=== PATIENT | female | born 1990 | race Caucasian/White ===

== ENCOUNTER 2019-12-23 21:00 | Inpatient (IN) | payer MEDICAID, SELFPAY ==
[2019-12-23 21:06] VITALS: BP 121/74; PULSE 101; RESP 16; TEMP 36.7; O2SAT 100; BMI 20.8
--- NOTE | 2019-12-23 23:06 | ED_ITS ---
Documented by User: KARI Wilcox 12/24/19 04:18 HPI - Female Genitourinary General: Chief complaint: Vaginal Bleeding Stated complaint: bleeding post miscarriage Time Seen by Provider: 12/23/19 22:54 History of Present Illness: HPI Narrative: Patient is a 29-year-old female comes to the ED with vaginal bleeding. Patient says that she had a miscarriage back on December 01. Patient says she was about 7 weeks when she had the miscarriage and states that she had approximately 5 to 7 days of heavy bleeding but then it stopped. She says she had no bleeding or pelvic pain then afterwards. She says on December 18 she started having heavy bleeding again with big clots coming out. She bleeds through 5-6 heavy pads a day for the last 4 days. She also describes having pelvic cramping as well. Patient says she did not see an OB or PCP after miscarriage and no ultrasound or anything was performed to make sure patient had no remaining tissue. Denies any fever, dysuria, hematuria, diarrhea, constipation or blood in stool. Patient took Tylenol for pain right before arriving to the ED. Associated symptoms: Deny abdominal pain, headache(s) or nausea Review of Systems Const: Denies: fever(s), chills or fatigue Eyes: Denies: change in vision or eye discomfort ENMT: Denies: throat pain, odynophagia, nasal discharge or nasal congestion Card: Denies: chest pain, palpitations, edema, swelling of feet/ankles, dyspnea on exertion or orthopnea Resp: Denies: dyspnea, productive cough or non-productive cough GI: Denies: abdominal pain, nausea, vomiting, diarrhea, constipation or hematochezia : Reports: vaginal bleeding and pelvic pain; Denies: flank pain, dysuria or hematuria Musc: Denies: neck pain, back pain or extremity swelling Skin/Breast: Denies: rash or new lesions Neuro: Denies: headache(s), numbness in extremities or weakness in extremities [facility] ED PFSH: Social History Smoking and tobacco status: current every day smoker Physical Exam Const: COMMON NORMALS: no acute distress, patient oriented x3 and alert GENERAL APPEARANCE: cooperative and comfortable HENMT: COMMON NORMALS: normocephalic HEAD & SCALP: normocephalic MOUTH: Normal oral and palatal mucosa present THROAT: posterior oropharynx normal and uvula midline Eye: COMMON NORMALS: Equal, round and reactive pupils present PUPIL: Yes Equal, round and reactive pupils present Neck/C-Spine: COMMON NORMALS: supple GENERAL: Yes normal visual inspection Resp: COMMON NORMALS: normal respiratory effort, No retractions, No use of accessory muscles and clear to auscultation bilaterally AUSCULTATION: clear to auscultation bilaterally Cardio: COMMON NORMALS: regular rate, regular rhythm, S1 normal heart sound present, S2 normal heart sound present, No gallops present (Cardio), No clicks present (Cardio), No murmurs present (Cardio) and Peripheral pulses 2+ throughout RATE: regular rate RHYTHM: regular rhythm HEART SOUNDS: S1 normal heart sound present and S2 normal heart sound present PERIPHERAL PULSES: Peripheral pulses 2+ throughout GI: COMMON NORMALS: Normal to inspection, nondistended, normoactive bowel sounds present, Soft to palpation and no masses PALPATION: Yes Soft to palpation and Yes Tenderness to palpation present (GI) Details: other (Lower left and right pelvic tenderness.) : COMMON NORMALS: Yes no CVA tenderness BLADDER/KIDNEY EXAM: Yes no CVA tenderness Back/Pelvis: COMMON NORMALS: no CVA tenderness Extremity: COMMON NORMALS: normal to inspection and no pedal edema Neuro: COMMON NORMALS: patient oriented x3 and moves all extremities SENSORIUM/ORIENTATION: Yes alert Skin: COMMON NORMALS: no rashes or lesions noted GENERAL SKIN EXAM: no rash es or lesions noted and dry skin Course Consultations: Consultation #1: I spoke with Dr. Bolanos of the OB doctor customer solutions coordinator and discussed patient's case with them. He recommended that we give patient Methergine and Tranexamic Acid to try and stop/slow down the bleeding. After giving medication we can reevaluate contact him. If bleeding does not slow or stop patient be admitted and D&C will be performed tomorrow Time: 01:13 Vital Signs: Vital signs: Vital Signs Temperature 98.1 F 12/23/19 21:06 Pulse Rate 85 12/24/19 04:00 Respiratory Rate 14 12/24/19 04:00 Blood Pressure 99/62 12/24/19 04:00 Pulse Oximetry 97 12/24/19 04:00 MDM - Female MDM Narrative: Medical decision making narrative: Patient is a 29-year-old female who comes to the ED with vaginal bleeding and pelvic pain. Patient was 7 weeks and had a miscarriage a little over 2 weeks ago. She started having heavy bleeding and pelvic pain again 4 days ago. White blood cells 12.1, hemoglobin 14.1 and hematocrit 42.2, hCG quant 0.50 and UA was unremarkable. Ultrasound of the pelvic with transvaginal showed No visible intrauterine . Mixed echogenicity material in the endometrial canal likely represents blood products. Retained products of conception cannot be excluded. I then contacted Dr. Bolanos the on-call OB doctor and told him about patient's case and ultrasound findings. He recommended giving Methergine and tranexamic acid to try and slow or stop the bleeding. If bleeding does not stop or slow patient will be admitted and D&C will be performed tomorrow. I signed outpatient case to Dr. Soria and he will be managing care and contacting Dr. Bolanos for possible admission. Patient was informed about plan of care and possible admission. She understood and agrees with plan. Lab Data: Attestation: I reviewed the patient's lab results. Labs: Lab Results 12/23/19 12/23/19 12/23/19 Range/Units 23:26 23:26 23:26 WBC 12.1 H (4.0-10.0) 10^3/ uL RBC 4.35 (4.1-5.3) 10^6/u L Hgb 14.1 (11.5-15.3) g/dL Hct 42.2 (37.0-47.0) % MCV 97.0 (81-99) fL MCH 32.4 (28.0-34.0) pg MCHC 33.4 (30.0-36.0) g/dL RDW 11.7 L (12.1-15.1) % Plt Count 249 (130-400) 10^3/c mm MPV 10.2 (7.4-10.4) fL Neut % (Auto) 66.9 % Lymph % (Auto) 24.0 % [place] % (Auto) 6.8 % Eos % (Auto) 1.7 % Baso % (Auto) 0.4 % Neut # (Auto) 8.1 H (1.8-7.7) 10^3/u L Lymph # (Auto) 2.9 (0.8-4.8) 10^3/u L [place]ley # (Auto) 0.8 (0.2-0.9) 10^3/u L Eos # (Auto) 0.2 (0.0-0.8) 10^3/u L Baso # (Auto) 0.1 (0.0-0.1) 10^3/u L Nucleated RBC % (a uto) 0 % Nucleated RBCs # 0.0 /100WBC PT 12.70 (10.5-13.3) SECO NDS INR 0.93 (0.8-1.2) APTT 32.8 (23.9-36.7) SECO NDS Sodium 139 (136-145) mmol/L Potassium 3.9 (3.5-5.1) mmol/L Chloride 101 (98-107) mmol/L Carbon Dioxide 26 (22-29) mmol/L Anion Gap 15.9 (5-19) BUN 12 (6-20) mg/dL Creatinine 0.7 (0.5-0.9) mg/dL GFR Calculation 99.6 (90-130) mL/min Glucose 79 (65-115) mg/dL Calculated Osmolal ity 283 L (285-295) mOsm/k g Calcium 9.4 (8.5-10.5) mg/dL Total Bilirubin 0.2 (0.15-1.2) mg/dL AST 19 (0-32) U/L ALT 15 (0-33) U/L Alkaline Phosphata se 56 (35-105) IU/L Total Protein 7.1 (6.6-8.7) g/dL Albumin 4.4 (3.5-5.2) g/dL Globulin 2.7 (1.3-4.6) g/dL Ser , Stacy i-Qnt 0.50 mIU/mL Urine Color (Yellow) Urine Appearance (CLEAR) Urine pH (5-7) Ur Specific Gravit y (1.005-1.030) Urine Protein (Negative) Urine Glucose (UA) (Normal) Urine Ketones (Negative) Urine Blood (Negative) Urine Nitrate (Negative) Urine Bilirubin (NEGATIVE) Urine Urobilinogen (Negative) mg/dL Ur Leukocyte Tracy ase (Negative) Urine RBC (0-2) /hpf Urine WBC (0-5) /hpf Ur Squamous Epith Cells (0-5) Amorphous Sediment Urine Bacteria (NONE) Urine Mucus 12/23/19 Range/Units 23:46 WBC (4.0-10.0) 10^3/ uL RBC (4.1-5.3) 10^6/u L Hgb (11.5-15.3) g/dL Hct (37.0-47.0) % MCV (81-99) fL MCH (28.0-34.0) pg MCHC (30.0-36.0) g/dL RDW (12.1-15.1) % Plt Count (130-400) 10^3/c mm MPV (7.4-10.4) fL Neut % (Auto) % Lymph % (Auto) % [place] % (Auto) % Eos % (Auto) % Baso % (Auto) % Neut # (Auto) (1.8-7.7) 10^3/u L Lymph # (Auto) (0.8-4.8) 10^3/u L [place] # (Auto) (0.2-0.9) 10^3/u L Eos # (Auto) (0.0-0.8) 10^3/u L Baso # (Auto) (0.0-0.1) 10^3/u L Nucleated RBC % (a uto) % Nucleated RBCs # /100WBC PT (10.5-13.3) SECO NDS INR (0.8-1.2) APTT (23.9-36.7) SECO NDS Sodium (136-145) mmol/L Potassium (3.5-5.1) mmol/L Chloride (98-107) mmol/L Carbon Dioxide (22-29) mmol/L Anion Gap (5-19) BUN (6-20) mg/dL Creatinine (0.5-0.9) mg/dL GFR Calculation (90-130) mL/min Glucose (65-115) mg/dL Calculated Osmolal ity (285-295) mOsm/k g Calcium (8.5-10.5) mg/dL Total Bilirubin (0.15-1.2) mg/dL AST (0-32) U/L ALT (0-33) U/L Alkaline Phosphata se (35-105) IU/L Total Protein (6.6-8.7) g/dL Albumin (3.5-5.2) g/dL Globulin (1.3-4.6) g/dL Ser , Stacy i-Qnt mIU/mL Urine Color Yellow (Yellow) Urine Appearance Sl hazy (CLEAR) Urine pH 7 (5-7) Ur Specific Gravit y 1.010 (1.005-1.030) Urine Protein Neg (Negative) Urine Glucose (UA) Norm (Normal) Urine Ketones Negative (Negative) Urine Blood 3+ H (Negative) Urine Nitrate Negative (Negative) Urine Bilirubin Neg (NEGATIVE) Urine Urobilinogen 1 H (Negative) mg/dL Ur Leukocyte Tracy ase Negative (Negative) Urine RBC >100 H (0-2) /hpf Urine WBC 5-10 H (0-5) /hpf Ur Squamous Epith Cells 5-10 H (0-5) Amorphous Sediment 1+ Urine Bacteria Trace (NONE) Urine Mucus Trace Imaging Data: US OB: Attestation: I personally reviewed and interpreted this imaging study as follows: Radiologist's impression: [place] [address] Ultrasound Report Signed Patient: Meagan Orlando Unit #: [id number] : 1990 Age/Sex: 29 / F ADM Date: 12/23/19 Loc: ER Room/Bed: Attending Dr: Ordering Provider/Ordering MD: Oscar Licona Date of Service: 12/24/19 Procedure(s): US pelvic with transvaginal Accession Number(s): [id number] Report Number: [id number] PROCEDURE INFORMATION: Exam: US Duplex Artery or Vein of the Abdominal and/or Reproductive Organs, Limited Ovaries Exam date and time: 12/24/2019 12:08 AM Clinical indication: Other: Cramping bleeding; Pelvic pain; ; Additional info: Post miscarriage bleeding and pelvic pain TECHNIQUE: Imaging protocol: Real-time duplex ultrasound scan of the arterial or venous flow with blanco scale, color Doppler flow and spectral waveform analysis with image documentation. Limited duplex exam focused on the ovaries. Duplex images required to evaluate for torsion and other vascular conditions. COMPARISON: No relevant prior studies available. FINDINGS: Right adnexa: Normal duplex of the ovary. Normal Doppler waveforms and color flow. No evidence of ovarian torsion. Left adnexa: Normal duplex of the ovary. Normal Doppler waveforms and color flow. No evidence of ovarian torsion. IMPRESSION: Unremarkable limited US Duplex. PROCEDURE INFORMATION: Exam: US Pelvis, Transvaginal Exam date and time: 12/24/2019 12:08 AM Age: 29 years old Clinical indication: Other: Cramping bleeding; Pelvic pain; ; Additional info: Post miscarriage bleeding and pelvic pain TECHNIQUE: Imaging protocol: Real-time transvaginal pelvic ultrasound with image documentation. Transvaginal imaging was used for better evaluation of the endometrium and adnexa. COMPARISON: No relevant prior studies available. FINDINGS: Uterus/cervix: The uterus is anteverted. Uterine contours are normal. There is mixed echogenicity material within the endometrial canal. Endometrial stripe thickness measures approximately 16 mm. Doppler interrogation of the endometrium was not performed. Gestation: There is no visible gestational sac. Right adnexa: The right ovary measures 2.5 x 2.0 x 2.1 cm. The right ovary is morphologically normal. There is normal blood flow in the right ovary. Left adnexa: The left ovary measures 2.4 x 2.0 x 1.5 cm. The left ovary is morphologically normal. There is normal blood flow in the left ovary. Free fluid: No free fluid in the pelvis. US/US pelvic with transvaginal IMPRESSION: 1. No visible intrauterine . 2. Mixed echogenicity material in the endometrial canal likely represents blood products. Retained products of conception cannot be excluded. 3. Doppler interrogation of the endometrial canal was not performed. Evaluation for retained products of conception is incomplete. 4. Normal ovaries. Dictated By: Boaz Strange MD Signed By: Boaz Strange MD Signed Date/Time: 12/24/19101 DD/ 0 Discharge Plan Discharge Patient Disposition: Placed in Observation Clinical Impression: Vaginal bleeding Condition: Stable Coding Level of Care Code ED Elevated Guard for Chg Fwd Exam Comprehensive Documented by User: Alfredo Soria DO 12/24/19 04:53 HPI - Female Genitourinary General: Chief complaint: Vaginal Bleeding Stated complaint: bleeding post miscarriage Time Seen by Provider: 12/23/19 22:54 PFSH ED PFSH: Social History Smoking and tobacco status: current every day smoker Course Vital Signs: Vital signs: Vital Signs Temperature 98.1 F 12/23/19 21:06 Pulse Rate 85 12/24/19 04:00 Respiratory Rate 14 12/24/19 04:00 Blood Pressure 99/62 12/24/19 04:00 Pulse Oximetry 97 12/24/19 04:00 MDM - Female MDM Narrative: Medical decision making narrative: 29-year-old female checked out to me by JOSELYN SolizC. Patient has had 2 doses of tranexamic acid for heavy uterine bleeding. Her bleeding is slowed, but definitely not stopped. She still bleeding a moderate amount. She is having some cramping pain is i mproved with morphine but not gone. She will be observed, for further evaluation and management. Spoke with Dr. Bolanos. Lab Data: Labs: Lab Results 12/23/19 12/23/19 12/23/19 Range/Units 23:26 23:26 23:26 WBC 12.1 H (4.0-10.0) 10^3/ uL RBC 4.35 (4.1-5.3) 10^6/u L Hgb 14.1 (11.5-15.3) g/dL Hct 42.2 (37.0-47.0) % MCV 97.0 (81-99) fL MCH 32.4 (28.0-34.0) pg MCHC 33.4 (30.0-36.0) g/dL RDW 11.7 L (12.1-15.1) % Plt Count 249 (130-400) 10^3/c mm MPV 10.2 (7.4-10.4) fL Neut % (Auto) 66.9 % Lymph % (Auto) 24.0 % [place] % (Auto) 6.8 % Eos % (Auto) 1.7 % Baso % (Auto) 0.4 % Neut # (Auto) 8.1 H (1.8-7.7) 10^3/u L Lymph # (Auto) 2.9 (0.8-4.8) 10^3/u L [place]ley # (Auto) 0.8 (0.2-0.9) 10^3/u L Eos # (Auto) 0.2 (0.0-0.8) 10^3/u L Baso # (Auto) 0.1 (0.0-0.1) 10^3/u L Nucleated RBC % (a uto) 0 % Nucleated RBCs # 0.0 /100WBC PT 12.70 (10.5-13.3) SECO NDS INR 0.93 (0.8-1.2) APTT 32.8 (23.9-36.7) SECO NDS Sodium 139 (136-145) mmol/L Potassium 3.9 (3.5-5.1) mmol/L Chloride 101 (98-107) mmol/L Carbon Dioxide 26 (22-29) mmol/L Anion Gap 15.9 (5-19) BUN 12 (6-20) mg/dL Creatinine 0.7 (0.5-0.9) mg/dL GFR Calculation 99.6 (90-130) mL/min Glucose 79 (65-115) mg/dL Calculated Osmolal ity 283 L (285-295) mOsm/k g Calcium 9.4 (8.5-10.5) mg/dL Total Bilirubin 0.2 (0.15-1.2) mg/dL AST 19 (0-32) U/L ALT 15 (0-33) U/L Alkaline Phosphata se 56 (35-105) IU/L Total Protein 7.1 (6.6-8.7) g/dL Albumin 4.4 (3.5-5.2) g/dL Globulin 2.7 (1.3-4.6) g/dL Ser , Stacy i-Qnt 0.50 mIU/mL Urine Color (Yellow) Urine Appearance (CLEAR) Urine pH (5-7) Ur Specific Gravit y (1.005-1.030) Urine Protein (Negative) Urine Glucose (UA) (Normal) Urine Ketones (Negative) Urine Blood (Negative) Urine Nitrate (Negative) Urine Bilirubin (NEGATIVE) Urine Urobilinogen (Negative) mg/dL Ur Leukocyte Tracy ase (Negative) Urine RBC (0-2) /hpf Urine WBC (0-5) /hpf Ur Squamous Epith Cells (0-5) Amorphous Sediment Urine Bacteria (NONE) Urine Mucus 12/23/19 Range/Units 23:46 WBC (4.0-10.0) 10^3/ uL RBC (4.1-5.3) 10^6/u L Hgb (11.5-15.3) g/dL Hct (37.0-47.0) % MCV (81-99) fL MCH (28.0-34.0) pg MCHC (30.0-36.0) g/dL RDW (12.1-15.1) % Plt Count (130-400) 10^3/c mm MPV (7.4-10.4) fL Neut % (Auto) % Lymph % (Auto) % [place] % (Auto) % Eos % (Auto) % Baso % (Auto) % Neut # (Auto) (1.8-7.7) 10^3/u L Lymph # (Auto) (0.8-4.8) 10^3/u L [place] # (Auto) (0.2-0.9) 10^3/u L Eos # (Auto) (0.0-0.8) 10^3/u L Baso # (Auto) (0.0-0.1) 10^3/u L Nucleated RBC % (a uto) % Nucleated RBCs # /100WBC PT (10.5-13.3) SECO NDS INR (0.8-1.2) APTT (23.9-36.7) SECO NDS Sodium (136-145) mmol/L Potassium (3.5-5.1) mmol/L Chloride (98-107) mmol/L Carbon Dioxide (22-29) mmol/L Anion Gap (5-19) BUN (6-20) mg/dL Creatinine (0.5-0.9) mg/dL GFR Calculation (90-130) mL/min Glucose (65-115) mg/dL Calculated Osmolal ity (285-295) mOsm/k g Calcium (8.5-10.5) mg/dL Total Bilirubin (0.15-1.2) mg/dL AST (0-32) U/L ALT (0-33) U/L Alkaline Phosphata se (35-105) IU/L Total Protein (6.6-8.7) g/dL Albumin (3.5-5.2) g/dL Globulin (1.3-4.6) g/dL Ser , Stacy i-Qnt mIU/mL Urine Color Yellow (Yellow) Urine Appearance Sl hazy (CLEAR) Urine pH 7 (5-7) Ur Specific Gravit y 1.010 (1.005-1.030) Urine Protein Neg (Negative) Urine Glucose (UA) Norm (Normal) Urine Ketones Negative (Negative) Urine Blood 3+ H (Negative) Urine Nitrate Negative (Negative) Urine Bilirubin Neg (NEGATIVE) Urine Urobilinogen 1 H (Negative) mg/dL Ur Leukocyte Tracy ase Negative (Negative) Urine RBC >100 H (0-2) /hpf Urine WBC 5-10 H (0-5) /hpf Ur Squamous Epith Cells 5-10 H (0-5) Amorphous Sediment 1+ Urine Bacteria Trace (NONE) Urine Mucus Trace Discharge Plan Discharge Patient Disposition: Placed in Observation Clinical Impression: Vaginal bleeding Condition: Stable Coding Level of Care Code ED Elevated Guard for Chg Fwd Exam Comprehensive
[2019-12-23 23:33] VITALS: BP 109/66; PULSE 82; RESP 14; O2SAT 100
[2019-12-23 23:37] LABS: Basophils # 0.1 10^3/uL (0.0-0.1); Basophils % 0.4 %; Eosinophils # 0.2 10^3/uL (0.0-0.8); Eosinophils % 1.7 %; Hematocrit 42.2 % (37.0-47.0); Hemoglobin 14.1 g/dL (11.5-15.3); Lymphocytes # 2.9 10^3/uL (0.8-4.8); Mean Corpuscular HGB Conc 33.4 g/dL (30.0-36.0); Mean Corpuscular Hemoglobin 32.4 pg (28.0-34.0); Mean Platelet Volume 10.2 fL (7.4-10.4); Monocytes # 0.8 10^3/uL (0.2-0.9); Monocytes % 6.8 %; Neutrophils # 8.1 10^3/uL (1.8-7.7); Neutrophils % 66.9 %; Nucleated Red Blood Cells % 0 %; Platelet Count 249 10^3/cmm (130-400); Red Blood Count 4.35 10^6/uL (4.1-5.3); Red Cell Distribution Width 11.7 % (12.1-15.1); White Blood Count 12.1 10^3/uL (4.0-10.0)
[2019-12-24] VITALS (13 sets, daily range): BP systolic 96–116; BP diastolic 56–79; PULSE 64–88; RESP 14–18; TEMP 36.6–36.7; O2SAT 97–100; BMI 22.1
[2019-12-24 00:03] LABS: Alanine Aminotransferase 15 U/L (0-33); Albumin Level 4.4 g/dL (3.5-5.2); Alkaline Phosphatase 56 IU/L (35-105); Anion Gap 15.9 (5-19); Aspartate Amino Transferase 19 U/L (0-32); Blood Urea Nitrogen 12 mg/dL (6-20); Calcium 9.4 mg/dL (8.5-10.5); Carbon Dioxide 26 mmol/L (22-29); Chloride 101 mmol/L (98-107); Globulin 2.7 g/dL (1.3-4.6); Glomerular Filtration Rate 99.6 mL/min (90-130); Glucose 79 mg/dL (65-115); Osmolality Calculated 283 mOsm/kg (285-295); Potassium 3.9 mmol/L (3.5-5.1); Sodium 139 mmol/L (136-145); Total Bilirubin 0.2 mg/dL (0.15-1.2); Total Protein 7.1 g/dL (6.6-8.7)
[2019-12-24 00:22] LABS: Urine Appearance SL Hazy (CLEAR); Urine Color Yellow (Yellow); pH Urine 7 (5-7)
[2019-12-24 00:23] LABS: Bilirubin Urine Neg (NEGATIVE); Blood Urine 3+ (Negative); Glucose Urine UA Norm (Normal); Ketones Urine Negative (Negative); Leukocyte Esterase Urine Negative (Negative); Nitrate Urine Negative (Negative); Protein Urine Neg (Negative); RBC Urine >100 /hpf (0-2); Urobilinogen Urine 1 mg/dL (Negative)
[2019-12-24 00:24] LABS: Bacteria Urine TRACE; Mucus Urine TRACE
[2019-12-24 00:25] LABS: Add Urine Culture? Yes; Amorphous Sediment Urine 1+
[2019-12-24 01:45] LABS: INR 0.93 (0.8-1.2)
[2019-12-24 01:46] LABS: Partial Thromboplastin Time 32.8 SECONDS (23.9-36.7)
[2019-12-24] MEDS: methylergonovine 0.2 mg/mL INJ 1 mL IM (01:54)
[2019-12-24] MEDS: sodium chloride 0.9% 1,000 ML 999 ML IV (01:55)
[2019-12-24] MEDS: morphine 4 mg/mL SDV 1 mL IVP (03:13)
[2019-12-24] MEDS: ondansetron 2 mg/ML SDV 2 mL 4 MG IVP (03:13)
[2019-12-24] MEDS: sodium chloride 0.9% 1,000 ML 100 ML IV (05:49)
[2019-12-24 10:36] LABS: Basophils # 0.1 10^3/uL (0.0-0.1); Basophils % 0.5 %; Eosinophils # 0.2 10^3/uL (0.0-0.8); Eosinophils % 2.1 %; Hematocrit 39.5 % (37.0-47.0); Hemoglobin 13.1 g/dL (11.5-15.3); Lymphocytes # 3.4 10^3/uL (0.8-4.8); Lymphocytes % 30.7 %; Mean Corpuscular HGB Conc 33.2 g/dL (30.0-36.0); Mean Corpuscular Hemoglobin 32.6 pg (28.0-34.0); Mean Corpuscular Volume 98.3 fL (81-99); Mean Platelet Volume 10.4 fL (7.4-10.4); Monocytes # 0.8 10^3/uL (0.2-0.9); Monocytes % 6.8 %; Neutrophils # 6.5 10^3/uL (1.8-7.7); Neutrophils % 59.6 %; Nucleated Red Blood Cells % 0 %; Platelet Count 194 10^3/cmm (130-400); Red Blood Count 4.02 10^6/uL (4.1-5.3); Red Cell Distribution Width 11.9 % (12.1-15.1)
[2019-12-24 10:40] LABS: HCG, Serum Qual Negative (Negative)
--- NOTE | 2019-12-24 11:36 | PM.SDS ---
Short Stay Summary Providers Date of Admit/Discharge: 12/24/19 Attending Provider: Jason Bolanos MD Chief Complaint: bleeding post miscarriage HPI History of Present Illness Meagan Orlando is a 29 year old female , sitting in the emergency room for vaginal bleeding under the assumption that she had a miscarriage. She'll referred having menses 10/17/2019 and Vaginal bleeding in 12/02/2019 Assuming she had a miscarriage, but no tests were done at home or clinic. Review of Systems Const: Denies: fever(s), chills or fatigue Eyes: Denies: change in vision or eye discomfort ENMT: Denies: throat pain, odynophagia, nasal discharge or nasal congestion Card: Denies: chest pain, palpitations, edema, swelling of feet/ankles, dyspnea on exertion or orthopnea Resp: Denies: dyspnea, productive cough or non-productive cough GI: Denies: abdominal pain, nausea, vomiting, diarrhea, constipation or hematochezia : Reports: vaginal bleeding and pelvic pain; Denies: flank pain, dysuria or hematuria Musc: Denies: neck pain, back pain or extremity swelling Skin/Breast: Denies: rash or new lesions Neuro: Denies: headache(s), numbness in extremities or weakness in extremities Home Meds/Allergies Home Medications and Allergies Home Medications Medication Instructions Recorded Confirmed Type No Known Home Medications 12/23/19 12/23/19 History Allergies Allergy/AdvReac Type Severity Reaction Status Date / Time Penicillins Allergy ALGY-Rash Verified 12/23/19 21:12 PFSH Acute PFSH: Social History Smoking and tobacco status: current every day smoker Female Reproductive History: Date of last menstrual period: 12/02/19 control method: none : 4 Para: 2 Spontaneous abortions: No Other female reproductive history: Menarche: 16 years old STI's: Herpes. Menses regular and lasting 7 days. Vitals/I&O/Wt Last Vital Signs Temp 97.9 F 12/24/19 08:00 Pulse 64 12/24/19 08:00 Resp 16 12/24/19 08:00 BP 100/68 12/24/19 08:00 Pulse Ox 97 12/24/19 08:00 12/23/19 12/24/19 12/24/19 22:59 06:59 14:59 Intake Total 1220 / 1220 Output Total 300 / 300 Balance 1220 / 1220 -300 / -300 Weight last 48 hrs Weight 44.906 kg Weight 42.184 kg Physical Exam Const: COMMON NORMALS: no acute distress, average body habitus and patient oriented x3 GENERAL APPEARANCE: cooperative and well kempt HENMT: COMMON NORMALS: normocephalic and atraumatic HEAD & SCALP: normocephalic and atraumatic Neck/C-Spine: COMMON NORMALS: full ROM Chest: COMMONS NORMALS: normal inspection of the chest Resp: COMMON NORMALS: normal respiratory effort Cardio: COMMON NORMALS: regular rate and regular rhythm RATE: regular rate RHYTHM: regular rhythm GI: INSPECTION: Yes normal to inspection : SPECULUM EXAM - VAGINA: Yes vaginal bleeding Amount: spotting OB/EXTERNAL & SPECULUM: vaginal bleeding Neuro: COMMON NORMALS: patient oriented x3 Psych: APPEARANCE: Yes well ket Hospital Course Admission Diagnoses: Incomplete AB Hospital Course: Patient admitted at the hospital with the exception of a complete AB. She was treated In the ER with the recommended tranexamic acid. No documented proof the patient have been and today's test was negative. Vaginal bleeding with scanty. She is afebrile hemodynamically stable. H&H within normal limits. SSS Data Data Completed and Pending: Completed Studies During Hospitalization Category Date Time Status US pelvic with tr ansvaginal Urgent Ultrasound 12/24/19 23:40 Completed Pending at discharge Category Date Time Status Complete Blood Co unt w/Auto AM LABS Lab 12/25/19 04:00 Ordered Comprehensive Met abolic Panel AM LA BS Lab 12/25/19 04:00 Ordered HCG Qualitative U rine Routine Lab 12/24/19 09:46 Ordered Urine Culture Sta t Lab 12/23/19 23:46 Received Laboratory Tests 12/23/19 12/23/19 12/24/19 23:26 23:26 10:15 WBC 12.1 H Hgb 14.1 Hct 42.2 Plt Count 249 PT 12.70 APTT 32.8 HCG, Qual Negative 12/24/19 10:15 WBC 11.0 H Hgb 13.1 Hct 39.5 Plt Count 194 PT APTT HCG, Qual Diagnoses at Discharge Discharge Diagnosis (1) Abnormal uterine bleeding (AUB): Status: Acute Problem details: 29-year-old female under the assumption that she had a miscarriage. No tests Were performed at home or a clinic when she had vaginal bleeding 3 weeks ago. And test performed at the emergency room last night was also negative. The patient was counseled regarding etiology of abnormal uterine bleeding including , immature hypothalamic pituitary ovarian axis, hyperandrogenic anovulation, hypothalamic dysfunction, hyperprolactinemia, thyroid disease, primary pituitary disease, primary ovarian failure, medications, sexually transmitted infections, malignancies, uterine lesions, and coagulopathies. Evaluation is directed toward finding the cause. She was asked to chart her menses counseled regarding the importance of accurate charting. The most common causes of excessive menstrual bleeding are: anovulation, abnormal growths in the uterus, such as polyps or fibroids, and bleeding disorders. Evaluation entails blood tests to look for a bleeding disorder, anemia, or thyroid disease, a pelvic ultrasound, which can detect endometrial polyps and fibroids, an endometrial biopsy or a hysteroscopy. Treatment options are medical treatment and surgical treatment. But the best treatment of heavy menstrual bleeding will depend on the cause of the bleeding and the patient?s preferences with need to prevent or desire to have children in the future. Medical treatment can be Hormonal control, (the pill, skin patch, vaginal ring, shot, hormonal IUD, and implant), Antifibrinolytic medicines, Non-steroidal anti-inflammatory drugs, Progestin pills, GnRH agonists. Surgical treatment also depends on the cause of AUB and may be myomectomy, endometrial ablation and a hysterectomy. The bleeding has stopped considerably after treatment with Tranexamic Acid. Patient was encouraged to follow-up at the clinic for further workup for normal uterine bleeding. Discharge Plan Discharge Patient Disposition: Home, Self-Care Condition: Stable Prescriptions: No Action No Known Home Medications RF: 0 Discharge Orders: Discharge Order (Routine); Ordered 12/24/19 Ordered By: Jason Bolanos Referrals: Jason Bolanos MD [Physician] - 4-7 days (Please call [facility] for a follow up appointment in 4-[address] Bolanos.) Discharge Diet: Usual diet Discharge Activity: Resume usual activity Patient Instructions: Abnormal Uterine Bleeding Activity Restrictions/Additional Instructions: Pelvic rest for 6 weeks (no sex, no tampons, no vaginal douches). Return to the emergency room if any fever, increased bleeding or pain. Discharge Date/Time: 12/24/19 11:43 Attestations Medical Necessity Statement*: In my professional opinion per admitting diagnosis. Time Spent in Patient Care*: greater than 30 min Specific Discharge Activities: Specific discharge activities: educating patient and educating and/or supporting family/caregiver Quality Metrics Clinical Quality Measures: During this hospital stay, did patient experience: None Coding Level of Care Code Acute Surgery Aid for Chg Fwd Exam Comprehensive Diagnoses Abnormal uterine bleeding (AUB) N93.9
--- NOTE | 2019-12-24 23:40 | USR_ITS ---
PROCEDURE INFORMATION: Exam: US Duplex Artery or Vein of the Abdominal and/or Reproductive Organs, Limited Ovaries Exam date and time: 12/24/2019 12:08 AM Clinical indication: Other: Cramping bleeding; Pelvic pain; ; Additional info: Post miscarriage bleeding and pelvic pain TECHNIQUE: Imaging protocol: Real-time duplex ultrasound scan of the arterial or venous flow with blanco scale, color Doppler flow and spectral waveform analysis with image documentation. Limited duplex exam focused on the ovaries. Duplex images required to evaluate for torsion and other vascular conditions. COMPARISON: No relevant prior studies available. FINDINGS: Right adnexa: Normal duplex of the ovary. Normal Doppler waveforms and color flow. No evidence of ovarian torsion. Left adnexa: Normal duplex of the ovary. Normal Doppler waveforms and color flow. No evidence of ovarian torsion. IMPRESSION: Unremarkable limited US Duplex. PROCEDURE INFORMATION: Exam: US Pelvis, Transvaginal Exam date and time: 12/24/2019 12:08 AM Age: 29 years old Clinical indication: Other: Cramping bleeding; Pelvic pain; ; Additional info: Post miscarriage bleeding and pelvic pain TECHNIQUE: Imaging protocol: Real-time transvaginal pelvic ultrasound with image documentation. Transvaginal imaging was used for better evaluation of the endometrium and adnexa. COMPARISON: No relevant prior studies available. FINDINGS: Uterus/cervix: The uterus is anteverted. Uterine contours are normal. There is mixed echogenicity material within the endometrial canal. Endometrial stripe thickness measures approximately 16 mm. Doppler interrogation of the endometrium was not performed. Gestation: There is no visible gestational sac. Right adnexa: The right ovary measures 2.5 x 2.0 x 2.1 cm. The right ovary is morphologically normal. There is normal blood flow in the right ovary. Left adnexa: The left ovary measures 2.4 x 2.0 x 1.5 cm. The left ovary is morphologically normal. There is normal blood flow in the left ovary. Free fluid: No free fluid in the pelvis. US/US pelvic with transvaginal IMPRESSION: 1. No visible intrauterine . 2. Mixed echogenicity material in the endometrial canal likely represents blood products. Retained products of conception cannot be excluded. 3. Doppler interrogation of the endometrial canal was not performed. Evaluation for retained products of conception is incomplete. 4. Normal ovaries.
--- NOTE | 2019-12-25 12:15 | PC.RESP ---
Smoking Cessation information and a schedule of classes sent to patient.
== END 2019-12-24 11:43 | disposition home or self-care (01) | DRG 761 ==
LOC: ER 12-24 04:40 → OBGYN 12-24 05:14
PROVIDERS: Physician Assistant; Admitting Provider Obstetrics & Gynecology; Emergency Provider Emergency Medicine; Visit Provider Obstetrics & Gynecology
DX: N93.9 Abnormal uterine and vaginal bleeding, unspecified (principal); B00.9 Herpesviral infection, unspecified; F17.210 Nicotine dependence, cigarettes, uncomplicated
CPT/HCPCS: 12345; 36415; 76830; 76856; 80053; 80500; 81001; 84702; 84703; 85025; 85610; 85730; 86850; 86870; 86900; 86902; 87086; 96372; 96375; 99284; J2210; J2270; J2405; J7030

== ENCOUNTER 2020-10-04 10:38 | Outpatient (CLI) | payer BC, MEDICAID, SELFPAY | END 2020-10-04 10:39 | disposition home or self-care (01) | LOC: LAB 10:43 | PROVIDERS: Visit Provider Family Medicine | DX: O20.0 Threatened abortion (principal) | CPT/HCPCS: 84702 ==

== ENCOUNTER 2020-11-20 14:18 | Outpatient (CLI) | payer BC, MEDICAID, SELFPAY ==
--- NOTE | 2020-11-20 18:27 | ONC CON_ITS ---
Dr. Nelson Cote Patient Note Patient: Meagan Orlando Unit #: [id number]: 1990 Dicatated By: Sundeep Damon M.D.Date of Visit: November 20, 2020 Onc MED New Patient/Consult Referring Physician: Dr. Dewayne Hernandez M.D. Chief Complaint: Antiphospholipid syndrome. History of Present Illness: This is a 30-year-old woman who has been diagnosed with antiphospholipid syndrome. She has a history of multiple spontaneous abortions, having had a total of 7 pregnancies and 2 live births. She had miscarriages in 2011, 2016, June 2019, and November 2019. The most recent occurred on 10/03/2020 after she having a positive test only 3 days earlier. She subsequently had a visit with Dr. Hernandez on 10/09/2020 and her laboratory evaluation at that time included an anticardiolipin antibody profile which was positive for IgM at 96 MPL. The IgG was in normal range at 3 GPL. Her TRUMAN screen was negative. Her RA titer was negative at <14 IU/mL, and her cyclic citrulline aided peptide antibody was negative at <16 units. She has been feeling pretty good generally, though she does complain that she is tired a lot. She says her energy comes in spurts. She is working full-time, she does feel that her activity tolerance is less than normal. Her ECOG score is 1. Her appetite is somewhat variable. She typically eats 2 meals a day. Recently she has gained weight. She does not have fever, night sweats, or hot flashes. She has a smoker's cough, but she does not complain of shortness of breath or chest pain. She has no GI complaints. She currently has no bladder symptoms, she does have a history of recurrent urinary tract infections, including an episode of pyelonephritis in 2018. She complains that she is sore a lot. She has a little joint pain, mainly in the fingers. She has pain occasionally in the right pelvic area associated with a pelvic fracture which she sustained in childhood. She has migraine headaches. She occasionally feels off balance. She complains that her legs hurt and get numb if she sits too long. She has no other focal neurologic symptoms. She does have anxiety and depression. In the past she had been on treatment with citalopram. She does not report abnormal bruising. She has had some bleeding associated with miscarriages. She has no history of thromboembolism. Past Medical History: Her medical history consists of anxiety/depression and chronic migraine. She has a history of recurrent urinary tract infections, including an episode of pyelonephritis in 2018. Past Surgical History: Her only surgery was a tonsillectomy/adenoidectomy in 2001. Medications: Aspirin 81 1 (81 mg) Tablet, chewable Oral daily Allergies: Bactrim DS, Penicillins, Strawberries, and Sulfa Antibiotics. Social History: Ms. Orlando is and she is employed as a patient care assist. She has a history of smoking 1/2 pack of cigarettes daily for 11 years. She is trying to quit. She has just occasional alcohol use. Family History: Both parents are living. She does not know much about her biologic father. Her mother has macrocytosis. She has 2 brothers and 3 sisters, all in good health. Review Of Symptoms: Constitutional - She is generally feeling okay. She reports fatigue nearly everyday. She works full-time, but she does feel her activity is restricted from lack of energy. Her appetite is good and her weight is up a few pounds from her normal. No fevers, night sweats, or hot flashes. ECOG score is 1, Eyes - She has occasional blurred vision, ENMT - No hearing loss or tinnitus. She has chronic sinus symptoms. No mouth sores. No sore throat or difficulty swallowing, Hematologic/Lymphatic - No abnormal bruising. No history of blood clots, Respiratory - No shortness of breath. She has a smoker's cough. No pleuritic pain or hemoptysis, Cardiovascular - No angina pain. No palpitations, Gastrointestinal - No nausea or vomiting. No heartburn or acid reflux. No diarrhea or constipation. No blood in the stool or black stools, Genitourinary (F) - No dysuria or hematuria. No urinary frequency. No urgency or incontinence. She has a history of frequent urinary tract infections, Musculoskeletal - She is sore a lot. She has some joint pain in her hands and her legs sometimes hurt, Integumentary - No skin eruption, Neurologic - She has chronic migraine type headaches, that she manages with over the counter medications. She occasionally feels off-balance. She has numbness and tingling in her legs with prolonged sitting. No other focal neurologic symptoms, Psychiatric - She has some anxiety. She has chronic depression. She does not sleep well. Vital Signs: Performed on November 20, 2020 15:19: 0, 21.77, 1.31 sq.m, 56 in, 98 %, 81 /min, 16 /min, 103/65 mm(hg), 97.7 F (LOW), and 97.1 lbs (HIGH). Physical Examination: Constitutional - She appears to be in good general health, Eyes - Sclerae nonicteric. Conjunctivae clear, ENMT - No lesions noted in the oral cavity, Neck - No mass or thyromegaly, Hematologic/Lymphatic - No cervical, clavicular, or axillary adenopathy, Respiratory - Lungs are clear with good air movement bilaterally, Cardiovascular - Heart rhythm is regular. There is a I/IV diastolic murmur. There is no gallop or rub noted, Abdomen - Soft and non-tender. Liver and spleen are not enlarged. There is no abdominal mass or ascites noted and there is no inguinal adenopathy, Back/Spine - No spine or CVA tenderness noted, Extremities - No edema. Pedal pulses are palpable bilaterally, Integumentary - No rashes. No suspicious skin lesions noted, Neurologic - No focal neurologic deficits noted. Problem List: 1. Patient with history of multiple miscarriages and elevated IgM anticardiolipin antibody, consistent with obstetric antiphospholipid syndrome. She has no history of thromboembolism. 2. She has a history of recurrent urinary tract infection, including an episode of pyelonephritis in 2018. 3. Chronic migraine. 4. Anxiety and depression. Problems Addressed with this Encounter and Plan: 1. Patient with history of multiple miscarriages and elevated IgM anticardiolipin antibody, consistent with obstetric antiphospholipid syndrome. She has no history of thromboembolism. I reviewed the diagnosis and clinical implications. She has been started on aspirin prophylaxis, which should be continued. In the absence of any history or evidence of thromboembolism, there is no indication for any additional anticoagulation unless she desires further , in which case she should also be treated with low molecular weight heparin. At the present time, she has no plans for further . Because her of her history of early loss, I asked her to let me know ahead of time if she changes her mind about her plans for . In the meantime, I will obtain additional laboratory studies to include a CBC, sed rate, repeat anticardiolipin antibody profile, anti-beta glycoprotein I antibody profile, and a lupus anticoagulant screen. I also will check a TSH level. In addition, I did discuss the issue of her smoking, and she is aware of the need to stop. 2. She has a faint diastolic heart murmur, and I also will schedule an echocardiogram. 3. She has anxiety and depression. She had good results in the past with citalopram, and she will be given a prescription to restart it at 20 mg daily. Signed By: Sundeep Damon M.D. <<Signature on File>>
== END 2020-11-20 14:19 | disposition home or self-care (01) ==
LOC: ONCMED 14:25
PROVIDERS: PCP Family Medicine; Visit Provider Internal Medicine Medical Oncology
DX: D68.61 Antiphospholipid syndrome (principal); G43.919 Migraine, unspecified, intractable, without status migrainosus; F41.9 Anxiety disorder, unspecified; F32.9 Major depressive disorder, single episode, unspecified; Z87.440 Personal history of urinary (tract) infections; Z87.442 Personal history of urinary calculi; Z79.899 Other long term (current) drug therapy
CPT/HCPCS: 99205

== ENCOUNTER 2020-12-13 07:10 | Outpatient (CLI) | payer BC, MEDICAID, SELFPAY ==
--- NOTE | 2020-12-13 07:15 | USCV_ITS ---
Meagan Orlando Age: 30 Gender: F : 1990 Exam Date: 12/13/2020 07:23 Ordering Phys: Sundeep Damon MD Technologist: Mariana Sanchez Exam Location: [facility] – [place] Indication: HEART MURMUR BP: 110 / 60 HR: 70 Rhythm: Sinus Technical Quality: Good MEASUREMENTS (Male / Female) Normal Values 2D ECHO LV Diastolic Diameter PLAX 4.2 cm 4.2 - 5.9 / 3.9 - 5.3 cm LV Systolic Diameter PLAX 2.4 cm IVS Diastolic Thickness 0.8 cm 0.6 - 1.0 / 0.6 - 0.9 cm IVS Systolic Thickness 1.5 cm LVPW Diastolic Thickness 0.9 cm 0.6 - 1.0 / 0.6 - 0.9 cm LVPW Systolic Thickness 1.2 cm LVOT Diameter 2.0 cm LV Ejection Fraction 2D Teich 75.4 % LV Ejection Fraction MOD 2C 75.2 % LV Ejection Fraction 2C AL 75.3 % LA Diameter 2.1 cm LA Width 3.0 cm LA Height 2.4 cm RA Width 2.8 cm RA Height 3.0 cm Aorta at Sinotubular Diameter 2.0 cm M-MODE LV Diastolic Diameter MM 4.3 cm 4.2 - 5.9 / 3.9 - 5.3 cm LV Systolic Diameter MM 2.6 cm LV Ejection Fraction MM Teich 70.9 % IVS Diastolic Thickness MM 1.1 cm 0.6 - 1.0 / 0.6 - 0.9 cm IVS Systolic Thickness MM 1.4 cm LVPW Diastolic Thickness MM 0.7 cm 0.6 - 1.0 / 0.6 - 0.9 cm LVPW Systolic Thickness MM 1.4 cm Aortic Annulus Diameter 2.3 cm LA Ao Ratio MM 0.9 MV E Point Septal Separation 0.3 cm DOPPLER AV Peak Velocity 120.0 cm/s LVOT Peak Velocity 77.0 cm/s AV Area Cont Eq vti 1.8 cm squared AV Area Cont Eq pk 2.0 cm squared MV Peak Velocity 113.0 cm/s MV Area PHT 3.9 cm squared Mitral E to A Ratio 2.0 MV E' Velocity 55.5 cm/s Mitral E to MV E' Ratio 5.9 Mitral E to LV E' Lateral Ratio 5.4 Mitral E to LV E' Septal Ratio 6.4 TR Peak Velocity 202.0 cm/s TR Peak Gradient 16.3 mmHg TV Peak E Velocity 87.0 cm/s Right Atrial Pressure 3.0 mmHg Pulmonary Artery Systolic Pressu 19.3 mmHg PV Peak Velocity 145.0 cm/s RV Acceleration Time 0.1 s RV Ejection Time 0.3 s RV AcT/ET 0.3 FINDINGS Left Ventricle Normal left ventricular size, systolic function and wall thickness, with no regional wall motion abnormalities. Left ventricular ejection fraction is estimated at 60 %. Normal diastolic function for age. Right Ventricle Normal right ventricular size and systolic function. Right ventricular systolic pressure 19.3 mmHg. Right Atrium Normal right atrial size. Right atrial pressure estimated at 3 mmHg. Left Atrium Normal left atrial size. Mitral Valve Bowing of bilateral mitral valve leaflets. No mitral valve prolapse. No mitral valve stenosis. Trace mitral valve regurgitation. Aortic Valve Structurally normal trileaflet aortic valve. No aortic valve stenosis. No aortic valve regurgitation. Tricuspid Valve Structurally normal tricuspid valve. Trace to mild tricuspid valve regurgitation. Pulmonic Valve Pulmonic valve not well visualized. Trace pulmonary valve regurgitation. Pericardium No pericardial effusion. Aorta Normal-sized aortic root. Normal-sized inferior vena cava. CONCLUSIONS 1. Normal left ventricular size, systolic function and wall thickness, with no regional wall motion abnormalities. Left ventricular ejection fraction is estimated at 60 %. Normal diastolic function for age. 2. Bowing of bilateral mitral valve leaflets. No mitral valve prolapse. Trace mitral valve regurgitation. 3. Trace to mild tricuspid valve regurgitation. 4. Pulmonary artery pressure estimated at 19 mmHg. 5. No prior similar studies to compare. Katarina Jones MD (Electronically Signed) Final Date: 13 December 2020 14:10 S
== END 2020-12-13 07:11 | disposition home or self-care (01) ==
LOC: RAD 07:11
PROVIDERS: PCP Family Medicine; Visit Provider Internal Medicine Medical Oncology
DX: R01.1 Cardiac murmur, unspecified (principal); I08.1 Rheumatic disorders of both mitral and tricuspid valves
CPT/HCPCS: 93306

== ENCOUNTER 2020-12-18 12:44 | Outpatient (CLI) | payer BC, MEDICAID, SELFPAY ==
--- NOTE | 2020-12-18 13:31 | USCV_ITS ---
Meagan Orlando Age: 30 Gender: F : 1990 Exam Date: 12/18/2020 13:38 Ordering Phys: Sundeep Damon MD Technologist: Delmi Gimenez Exam Location: [facility] – [place] Indication: PAINFUL RT CALF HISTORY: Painful Rt calf for 2 day. PROCEDURES: Venous duplex imaging was performed in only the right lower extremity. The following venous structures were evaluated: common femoral vein, profunda vein, proximal portion of the greater saphenous vein, superficial femoral vein, and the popliteal vein. In addition, the posterior tibial and peroneal trunk were evaluated. Serial compression, augmentation maneuvers, and spectral Doppler flow evaluation were performed. FINDINGS: Normal 2-D Doppler and augmentation and compressibility throughout the lower extremity venous structures. Additional imaging through the proximal calf veins also reveals no thrombus. Limited evaluation of the greater saphenous vein is patent with no thrombus.. CONCLUSIONS No evidence of right lower extremity DVT. Alan Aguirre MD (Electronically Signed) Final Date: 19 December 2020 09:47 S
== END 2020-12-18 12:45 | disposition home or self-care (01) ==
LOC: RAD 12:45
PROVIDERS: PCP Family Medicine; Visit Provider Internal Medicine Medical Oncology
DX: D68.61 Antiphospholipid syndrome (principal); M79.89 Other specified soft tissue disorders
CPT/HCPCS: 93971

== ENCOUNTER 2020-12-26 15:32 | Outpatient (CLI) | payer BC, MEDICAID, SELFPAY ==
[2020-12-26 16:01] LABS: Basophils # 0.1 10^3/uL (0.0-0.1); Basophils % 0.7 %; Eosinophils # 0.2 10^3/uL (0.0-0.8); Eosinophils % 1.4 %; Hematocrit 41.3 % (37.0-47.0); Lymphocytes # 2.4 10^3/uL (0.8-4.8); Lymphocytes % 22.3 %; Mean Corpuscular HGB Conc 33.9 g/dL (30.0-36.0); Mean Corpuscular Hemoglobin 32.6 pg (28.0-34.0); Mean Corpuscular Volume 96.3 fL (81-99); Mean Platelet Volume 10.4 fL (7.4-10.4); Monocytes # 0.7 10^3/uL (0.2-0.9); Monocytes % 6.5 %; Neutrophils # 7.32 10^3/uL (1.8-7.7); Neutrophils % 68.7 %; Nucleated Red Blood Cells % 0 %; Platelet Count 243 10^3/cmm (130-400); Red Blood Count 4.29 10^6/uL (4.1-5.3); White Blood Count 10.6 10^3/uL (4.0-10.0)
[2020-12-26 16:33] LABS: Thyroid Stimulating Hormone 1.02 uIU/mL (0.27-4.20)
[2020-12-26 16:47] LABS: Erythrocyte Sedimentation Rate 6 mm/hr (0-15)
== END 2020-12-26 15:33 | disposition home or self-care (01) ==
LOC: ONCMED 15:36
PROVIDERS: PCP Family Medicine; Visit Provider Internal Medicine Medical Oncology
DX: D68.61 Antiphospholipid syndrome (principal); E03.9 Hypothyroidism, unspecified; Z79.899 Other long term (current) drug therapy
CPT/HCPCS: 36415; 84443; 85025; 85613; 85651; 85730; 86146; 86147

== ENCOUNTER 2020-12-30 15:33 | Outpatient (CLI) | payer BC, MEDICAID, SELFPAY ==
[2021-01-03 04:37] LABS: Inhibitor Screen Reflex Negative (Negative); LA-Interp Not Indicated; PTT-LA 42 sec (<=40); Prothrombin Time 29 sec (<=45)
== END 2020-12-30 15:34 | disposition home or self-care (01) ==
LOC: ONCMED 15:34
PROVIDERS: PCP Family Medicine; Visit Provider Internal Medicine Medical Oncology
DX: D68.61 Antiphospholipid syndrome (principal)
CPT/HCPCS: 36415; 85613; 85730

== ENCOUNTER → 2023-03-23 15:33 | Outpatient (BNVA) | payer BC, MEDICAID, SELFPAY | PROVIDERS: PCP Family Medicine; Referring Provider Dermatology; Visit Provider Physician Assistant | DX: M75.42 Impingement syndrome of left shoulder | CPT/HCPCS: 73030 ==

== ENCOUNTER → 2024-05-30 10:55 | Outpatient (BNVA) | payer BC, MEDICAID, SELFPAY | PROVIDERS: PCP Family Medicine | DX: R39.9 Unspecified symptoms and signs involving the genitourinary system (principal); R30.0 Dysuria | CPT/HCPCS: 81000; 87086; 87491; 87591 ==

== ENCOUNTER → 2025-06-13 09:09 | Outpatient (BNVA) | payer BC, MEDICAID, SELFPAY | PROVIDERS: PCP Family Medicine; Visit Provider Podiatrist Foot & Ankle Surgery | DX: M25.571 Pain in right ankle and joints of right foot (principal); S99.911A Unspecified injury of right ankle, initial encounter; S93.401A Sprain of unspecified ligament of right ankle, initial encounter; X58.XXXA Exposure to other specified factors, initial encounter | CPT/HCPCS: 73610 ==